=== PATIENT | male | born 1965 | race Caucasian/White ===

== ENCOUNTER → 2017-10-23 06:59 | Outpatient (CLI) | payer OTHER, SELFPAY ==
[2017-10-23 08:48] LABS: Anion Gap 5 (5-15); BUN 12 mg/dL (7-18); BUN/Creat Ratio 17.7 RATIO (10-20); Calcium,Total 8.4 mg/dL (8.5-10.1); Chloride 107 mmol/L (98-107); Cholesterol 138 mg/dL (200); Creatinine, Serum 0.68 mg/dL (0.70-1.30); EST Glomerular Filtration Rate 129 mL/min (>60); Est Glom Filt Rate - Afr Amer 157 mL/min (>60); Glucose 98 mg/dL (74-106); High Density Lipoprotein 44 mg/dL; Potassium 3.9 mmol/L (3.5-5.1); Sodium Level 142 mmol/L (136-145); Triglycerides 47 mg/dL; Very Low Density Lipoprotein 9 mg/dL (5-40)
[2017-10-25 09:15] LABS: Vitamin D,25 Hydroxy 35.7 ng/mL (29.95-100.01)
== END ==
PROVIDERS: Family Provider Family Medicine; PCP Family Medicine; Visit Provider Family Medicine
DX: Z00.00 Encounter for general adult medical examination without abnormal findings (principal); Z12.5 Encounter for screening for malignant neoplasm of prostate
CPT/HCPCS: 36415; 80048; 80061; 82306; 84153; G0103

== ENCOUNTER → 2019-09-15 | Outpatient (CLI) | payer OTHER, SELFPAY ==
[2019-09-15 10:15] LABS: Anion Gap 6 (5-15); BUN 12 mg/dL (7-18); BUN/Creat Ratio 15.4 RATIO (10-20); Calcium,Total 8.6 mg/dL (8.5-10.1); Chloride 106 mmol/L (98-107); Cholesterol 180 mg/dL (200); Creatinine, Serum 0.78 mg/dL (0.70-1.30); EST Glomerular Filtration Rate 110 mL/min (>60); Est Glom Filt Rate - Afr Amer 133 mL/min (>60); Glucose 100 mg/dL (74-106); High Density Lipoprotein 43 mg/dL; PSA,Total - Annual Screen 1.25 ng/mL (0.00-4.00); Potassium 3.8 mmol/L (3.5-5.1); Sodium Level 138 mmol/L (136-145); Triglycerides 65 mg/dL; Very Low Density Lipoprotein 13 mg/dL (5-40); Vitamin D,25 Hydroxy 35.9 ng/mL
== END | disposition home or self-care (01) ==
PROVIDERS: PCP Family Medicine; Referring Provider Family Medicine; Visit Provider Family Medicine
DX: Z00.00 Encounter for general adult medical examination without abnormal findings (principal)
CPT/HCPCS: 36415; 80048; 80061; 82306; 84153; G0103

== ENCOUNTER → 2020-07-17 16:37 | Outpatient (CLI) | payer OTHER, SELFPAY ==
[2020-07-17 18:17] LABS: Anion Gap 6 (5-15); BUN 16 mg/dL (7-18); BUN/Creat Ratio 20.7 RATIO (10-20); Calcium,Total 9.1 mg/dL (8.5-10.1); Chloride 104 mmol/L (98-107); Creatinine, Serum 0.77 mg/dL (0.70-1.30); EST Glomerular Filtration Rate 110 mL/min (>60); Est Glom Filt Rate - Afr Amer 133 mL/min (>60); Glucose 91 mg/dL (74-106); Sodium Level 138 mmol/L (136-145)
== END ==
PROVIDERS: PCP Family Medicine; Referring Provider Family Medicine; Visit Provider Family Medicine
DX: N52.9 Male erectile dysfunction, unspecified (principal)
CPT/HCPCS: 36415; 80048; 84403

== ENCOUNTER → 2022-05-22 | Outpatient (CLI) | payer OTHER, SELFPAY ==
[2022-05-22 12:54] LABS: Anion Gap 3 (5-15); BUN 10 mg/dL (7-18); BUN/Creat Ratio 13.6 RATIO (10-20); Calcium,Total 9.3 mg/dL (8.5-10.1); Chloride 105 mmol/L (98-107); Cholesterol 223 mg/dL (200); Creatinine, Serum 0.73 mg/dL (0.70-1.30); EST Glomerular Filtration Rate 116 mL/min (>60); Est Glom Filt Rate - Afr Amer 141 mL/min (>60); Glucose 98 mg/dL (74-106); High Density Lipoprotein 45 mg/dL; PSA,Total - Annual Screen 1.48 ng/mL (0.00-4.00); Potassium 4.2 mmol/L (3.5-5.1); Sodium Level 138 mmol/L (136-145); Triglycerides 146 mg/dL; Very Low Density Lipoprotein 29 mg/dL (5-40)
== END | disposition home or self-care (01) ==
LOC: MFPLAB 10:36
PROVIDERS: PCP Family Medicine; Referring Provider Family Medicine; Visit Provider Family Medicine
DX: Z00.00 Encounter for general adult medical examination without abnormal findings (principal); Z12.5 Encounter for screening for malignant neoplasm of prostate
CPT/HCPCS: 36415; 80048; 80061; 84153; G0103

== ENCOUNTER → 2023-04-21 | Outpatient (CLI) | payer BC, SELFPAY ==
[2023-04-21 15:19] LABS: Absolute Neutrophil Count 7.2 X10^3/uL (2.0-7.7); Basophil# 0.08 X10^3/uL; Basophil% 0.7 % (0-1); Eosinophil# 0.29 X10^3/uL; Eosinophils% 2.6 % (0-5); Hematocrit 45.5 % (40-54); Hemoglobin 15.2 g/dL (13.0-16.5); Lymphocyte % 20.1 % (19-41); Mean Corp Hgb Conc 33.4 g/dL (32-36); Mean Corpuscular Hgb 29.1 pg (27.0-32.0); Mean Corpuscular Volume 87.2 fL (80-94); Monocyte# 1.16 X10^3/uL; Monocyte% 10.6 % (0-10); NRBC Flagged by Analyzer 0 % (0-5); Neutrophil # 7.18 X10^3/uL (2.7-7.7); Neutrophil % 65.6 % (47-70); Platelet Count 280 K/mm3 (150-450); RBC Distribution Width CV 11.7 % (11.6-14.6); RBC Distribution Width SD 37.6 fl (35.1-43.9); Red Blood Count 5.22 M/mm3 (4.6-6.2)
[2023-04-21 15:35] LABS: Erythrocyte Sedimentation Rate 17 mm/hr (0-20)
[2023-04-21 16:02] LABS: AST(SGOT) 19 U/L (15-37); Alanine Aminotransfer ALT/SGPT 53 U/L (16-61); Albumin, Serum 3.8 g/dL (3.2-5.0); Alkaline Phosphatase 77 U/L (45-117); Anion Gap 9 (5-15); BUN 15 mg/dL (7-18); BUN/Creat Ratio 20.1 RATIO (10-20); CRP < 2.90 mg/L (0.0-3.0); Calcium,Total 8.7 mg/dL (8.5-10.1); Chloride 106 mmol/L (98-107); Creatinine, Serum 0.74 mg/dL (0.70-1.30); EST Glomerular Filtration Rate 114 mL/min (>60); Est Glom Filt Rate - Afr Amer 138 mL/min (>60); Glucose 92 mg/dL (74-106); Protein, Total 7.8 g/dL (6.4-8.2); Sodium Level 139 mmol/L (136-145)
[2023-04-23 14:09] LABS: Endomysial Antibody IgA Negative (Negative); Immunoglobulin A 350 mg/dL (90-386); t-Transglutaminase IgA <2 U/mL (0-3)
== END | disposition home or self-care (01) ==
LOC: MTLAB 14:00
PROVIDERS: PCP Family Medicine; Referring Provider Internal Medicine Gastroenterology; Visit Provider Internal Medicine Gastroenterology
DX: R10.9 Unspecified abdominal pain (principal); R14.0 Abdominal distension (gaseous)
CPT/HCPCS: 36415; 80053; 82784; 83516; 85025; 85652; 86140; 86255

== ENCOUNTER → 2024-03-30 | Outpatient (CLI) | payer BC, SELFPAY ==
--- NOTE | 2024-03-30 16:53 | RAD_ITS ---
INDICATION: SCIATICA OF RIGHT SIDE EXAMINATION/TECHNIQUE: X-RAY - XR Spine Lumbar Min 4 Views COMPARISON: No relevant prior comparison study available FINDINGS: VERTEBRAE: Preserved vertebral body height. No fracture. No spondylolisthesis. Preservation of the normal lumbar lordosis. No significant facet arthropathy. DISCS: Moderate multilevel degenerative spondylosis. INCLUDED ABDOMEN: Included bowel gas pattern is non-obstructive. RAD/L/S Spine Min 4 Views IMPRESSION: Moderate multilevel degenerative spondylosis. Electronically Signed: Heidi Machado MD at 6:56 EDT ,
== END | disposition home or self-care (01) ==
PROVIDERS: PCP Family Medicine; Referring Provider Family Medicine; Visit Provider Family Medicine
DX: M54.31 Sciatica, right side (principal)
CPT/HCPCS: 72110

== ENCOUNTER → 2024-07-21 | Outpatient (CLI) | payer BC, SELFPAY ==
--- NOTE | 2024-07-21 12:02 | RAD_ITS ---
EXAM: XR Orbits Foreign Body CLINICAL INDICATION: TECHNIQUE: Frontal view(s) of the orbits. COMPARISON: No relevant prior studies available. FINDINGS: BONES/JOINTS: Unremarkable. No acute fracture. SINUSES: Unremarkable. No air-fluid levels. SOFT TISSUES: Unremarkable. No radiopaque foreign bodies in the orbits. RAD/Orbits for Foreign Body IMPRESSION: No radiopaque foreign body in either orbit. Reading Location: [facility]
--- NOTE | 2024-07-21 12:04 | MRI_ITS ---
PROCEDURE: Noncontrast MRI of the lumbar spine. REASON FOR EXAM: Back pain radiating to the hips and legs. No recent trauma. No history of prior lumbar spine surgery provided. TECHNIQUE: Contiguous unenhanced axial CT images were obtained through the lumbar spine. Sagittal and coronal reformats were created. CONTRAST: COMPARISON: None. FINDINGS: The study assumes a presence of 5 lumbar type, [id number] vertebral bodies. Minimal grade 1 retrolisthesis of L3 relative to L4. The marrow signal of the lumbar vertebral bodies is mildly heterogeneous, without focal abnormal marrow replacement process or acute fracture. The conus terminates at T12-L1. The included lower spinal cord is unremarkable. There are mild/moderate disc bulges in the lower thoracic spine, greatest at the T11-12, causing [id number]-jg-[id number] central spinal canal narrowing. No definite focal disc herniation in the lower thoracic spine. The included portions of the upper sacrum and SI joints are intact. Included retroperitoneal and paraspinal soft tissues show no specific abnormality. L1-2: A lobulated disc bulge indents the ventral thecal sac and causes mild central spinal canal narrowing. No focal disc herniation. Mild bilateral neural foraminal narrowing and mild degenerative facet changes. L2-3: Minimal disc bulge flattens the ventral thecal sac, without focal disc herniation or significant central spinal canal narrowing. Mild bilateral neural foraminal narrowing. Mild degenerative facet changes. L3-4: Mild disc bulge flattens the ventral thecal sac, without focal disc herniation or significant central spinal canal narrowing. Tquz-hi-rapidyvr bilateral neural foraminal narrowing and mild degenerative facet changes. L4-5: Mild disc bulge flattens the ventral thecal sac, without focal disc herniation or significant central spinal canal narrowing. Moderate bilateral neural foraminal narrowing and moderate degenerative facet changes. L5-S1: Mild diffuse disc bulge, which flattens the ventral thecal sac. No focal disc herniation or significant central spinal canal narrowing. Moderate bilateral neural foraminal narrowing, greatest on the left. Moderate degenerative facet changes. MRI/Spine Lumbar (Routine) IMPRESSION: No acute bony abnormality of the lumbar spine. Moderate multilevel degenerative disc and facet disease in the lumbar spine as described level by level above. A few levels with mild central spinal canal narrowing. No large focal disc herniation or severe central spinal canal stenosis. Multilevel neural foraminal narrowing and degenerative facet changes as describ ed above. There is moderate bilateral neural foraminal narrowing at the L4-5 and L5-S1 levels. Reading Location: [facility]
== END | disposition home or self-care (01) ==
LOC: MRI 11:59
PROVIDERS: PCP Family Medicine; Referring Provider Student in an Organized Health Care Education/Training Program; Visit Provider Student in an Organized Health Care Education/Training Program
DX: Z01.818 Encounter for other preprocedural examination (principal); M54.16 Radiculopathy, lumbar region
CPT/HCPCS: 70030; 72148

== ENCOUNTER 2024-07-26 10:30 | Outpatient (RCR) | payer BC, SELFPAY ==
--- NOTE | 2024-06-26 11:01 | HP.PTEVAL ---
Patient's Visit Information Visit Information Visit Information: JAZZMINE ARNETT II is a 59 year old M referred to Physical Therapy by SHANTANU Judd with a diagnosis of RADICULOPATHY ,LUMBAR ,PRIMARY OSTEOARTHRITIS ,LEFT KNEE. Date of Evaluation: 06/26/24 Physical Therapist: Ermias Zabala, PT, Cert MDT, OCS Visit Plan Frequency: 2x /Week Duration: 4 Weeks Plan: PT INTERVENTIONS JUAN EX'S ,DLS ,POSTURAL EX'S ,LE FLEXABILITY,STRENGTHENING QUADS/HAMS/HIP ,ROM KNEE AND MODALITIES PRN Subjective Subjective: This 59 y/o male presents to physical therapy with lumbar radiculopathy and left knee OA.Patient has lumbar radiculopathy many years and left knee pain/stiffness many years. Patient states possible TKA left. But seen DR for lumbar did x-rays showed DDD .Plan to do MRI for lumbar. Patient has lumbar and hamstrings in bilateral and right calf . Left knee is global. Aggravating bending ,lifting ,sitting. Alleviating factors moving and walking. Patient is unable to squat /kneel ,stairs painful. Patient denies paresthesia/tingling - Coughing/sneezing-Bowel/bladder-Symptoms affects sleeping. Patient has no rior PT and pain management. Patient condition affects QOL and function/job demands. Patient goals why I have pain. SOCIAL:marries VOCATION: sprinkler truck driver Pain Bilateral Back: Pain Intensity (Out of 10): 1 Pain Intensity Range: 10 Bilateral Lower Extremity: Pain Intensity (Out of 10): 3 Pain Intensity Range: 10 Left Knee: Pain Intensity (Out of 10): 1 Pain Intensity Range: 10 Objective Objective: POSTURE: mild forward posture GAIT: ambulates antalgic gait left side with knee in extension with decrease swing phase NEURO: denies paresthesia/tingling ,reflexes L3-4,L4-5,L5-S1 1/3 PALAPTION: unremarkable EDEMA: absent AROM: supine knee flexion 0-120 degrees LUMBAR ROM: flexion mod loss ,extension min/mod loss ,side glides min/mod loss MMT: ( peak force) left quad 23.8 ,hamstrings 24.1 ,hip flexion 24.9 FLEXABILITY: hamstrings mod tight Special Tests L/S Slump test left side: Negative L/S Slump test right side: Negative L/S Left Straight Leg Raise: Negative L/S Right Straight Leg Raise: Negative Lumbar Standing: Flexion - Mechanical Response: No effect Lumbar Standing: Flexion - Symptoms During Testing: Increases Lumbar Standing: Flexion - Symptoms After Testing: No worse Comments:: hamstrings Lumbar Standing: Extension - Mechanical Response: No effect Lumbar Standing: Extension - Symptoms During Testing: Decreases Lumbar Standing: Extension - Symptoms After Testing: No better Lumbar Standing: Right Side Glides - Mechanical Response: No effect Lumbar Standing: Right Side [place] - Symptoms During Testing: No effect Lumbar Standing: Right Side [place] - Symptoms After Testing: No effect Lumbar Standing: Left Side [place] - Mechanical Response: No effect Lumbar Standing: Left Side [place] - Symptoms During Testing: No effect Lumbar Standing: Left Side [place] - Symptoms After Testing: No effect Lumbar Lying: Flexion - Mechanical Response: No effect Lumbar Lying: Flexion - Symptoms During Testing: No effect Lumbar Lying: Flexion - Symptoms After Testing: No effect Lumbar Lying: Extension - Mechanical Response: No effect Lumbar Lying: Extension - Symptoms During Testing: Increases Lumbar Lying: Extension - Symptoms After Testing: No worse Comments:: back , Balance/Special Test Scores Oswestry Low Back Score: 24 Goals Goal 1:: Patient to be I with knee and back Goal Time Frame: 4-6 Weeks Goal 2:: Patient to improve AROM knee flexion by 5-10 degrees to improve stairs Goal Time Frame: 4-6 Weeks Goal 3:: Patient to improve peak force quads/hams/hip by 5-10 # to improve function Goal Time Frame: 4-6 Weeks Goal 4:: Patient to improve lumbar ROM for function of recovery for lifting and put on shes Goal Time Frame: 4-6 Weeks Goal 5:: Patient to improve back oswestry score by 5 points to improve QOL Goal Time Frame: 4-6 Weeks Goal 6:: Patient to demonstrate 50% improvement with less pain and improved function Goal Time Frame: 4-6 Weeks Rehabilitation Potential Physical Therapy Diagnosis: This patient has lumbar radiculopathy with pain with positioning and motion testing better walking worse sitting bending in hamstrings along with left knee DJD with pain ,weakness and decrease ROM thus benefit from skilled PT Rehabilitation Potential: Good Anticipated Interventions Patient/Client Instruction: Educate patient on: Condition and Plan of Care For the Purpose of:: To decrease pain, To increase ROM, To improve muscle performance and motor function, To improve ability to perform ADL's, To increase tolerance to activity/condition/position, To improve ability of physical actions for home/community/work/leisure, To improve health of tissue, To decrease soft tissue restriction, To increase flexibility/ROM, To reduce risk of recurrence, To prevent re-injury and To improve tolerance to ADL's Therapeutic Exercise to Include: Strength training, Body mechanics, Postural training, Flexibilty training, Passive ROM, Active ROM, Dynamic Lumbar Stabilization and Juan Exercises Comment: LEFT QUADS/HAMS/HIP For the Purpose of:: To decrease pain, To increase ROM, To improve muscle performance and motor function, To increase tolerance to activity/condition/position, To improve ability of physical actions for home/community/work/leisure, To improve gait and locomotor functions, To improve health of tissue, To decrease soft tissue restriction, To increase flexibility/ROM, To improve endurance and To improve tolerance to ADL's TENS: Yes IF ES: Yes Cryotherapy (ice pack, ice massage): Yes Thermo therapy (hot pack): Yes Ultrasound (thermal/non thermal): Yes For the Purpose of:: To decrease pain, To increase ROM, To improve muscle performance and motor function, To improve ability to perform ADL's, To improve health of tissue, To decrease soft tissue restriction and To improve tolerance to ADL's Text: Thank you for the opportunity to evaluate your patient. For Medicare and Medicare HMO plans, please review the plan of care and approve it. It will need to be FAXED BACK to us at [phone] for Medicare purposes. For Medicare only, by signing this I certify the plan of care. Please let me know if there are questions or concerns regarding this plan of care. Physician Signature: Date:
--- NOTE | 2024-07-26 11:49 | HP.PTDCSUM ---
Discharge Summary D/C summary: It has been my pleasure to treat JAZZMINE ARNETT II referred by SHANTANU Judd, with the diagnosis of RADICULOPATHY ,LUMBAR ,PRIMARY OSTEOARTHRITIS ,LEFT KNEE for a total of 7 visit(s). Discharge Date: 07/26/24 Please see the following information for a summary of their discharge status. Subjective Subjective: Discussed with patient MRI But patient thinks knee is worse and I shoulder see DR Santana then ortho for knee Pain Bilateral Back: Pain Intensity (Out of 10): 7 Bilateral Lower Extremity: Pain Intensity (Out of 10): 2 Left Knee: Pain Intensity (Out of 10): 2 Overall Improvement % Improvement: 10 Objective Objective/Function: -REVIEWED MRI- -RTD POSTURE: mild forward posture GAIT: ambulates antalgic gait left side with knee in extension with decrease swing phase NEURO: denies paresthesia/tingling ,reflexes L3-4,L4-5,L5-S1 1/3 PALAPTION: unremarkable EDEMA: absent AROM: supine knee flexion 0-120 degrees LUMBAR ROM: flexion mod loss ,extension min/mod loss ,side glides min/mod loss MMT: ( peak force) left quad 24.8 ,hamstrings 24.7 ,hip flexion 25.91 FLEXABILITY: hamstrings mod tighT Goals Goal 1:: Patient to be I with knee and back Goal Progress: Progressing Goal 2:: Patient to improve AROM knee flexion by 5-10 degrees to improve stairs Goal Progress: Not Progressing Goal 3:: Patient to improve peak force quads/hams/hip by 5-10 # to improve function Goal Progress: Not Progressing Goal 4:: Patient to improve lumbar ROM for function of recovery for lifting and put on shes Goal Progress: Not Progressing Goal 5:: Patient to improve back oswestry score by 5 points to improve QOL Goal Progress: Not Progressing Goal 6:: Patient to demonstrate 50% improvement with less pain and improved function Goal Progress: Progressing Plan Plan: D/C D/C Information Discharge Comments: RTD d/c sentence: If there are questions or concerns regarding this patient's physical therapy, please feel free to call me at [phone]. Thank you for the referral of this patient. Sincerely, Ermias Zabala, PT, Cert MDT, OCS Balance/Gait/Functional tests Balance/Special Test Scores Oswestry Low Back Score: 24 Improvement % Improvement: 10
== END 2024-07-26 19:00 | disposition home or self-care (01) ==
LOC: PT 10:30
PROVIDERS: PCP Family Medicine; Referring Provider Student in an Organized Health Care Education/Training Program; Visit Provider Student in an Organized Health Care Education/Training Program
DX: M54.16 Radiculopathy, lumbar region (principal); M17.12 Unilateral primary osteoarthritis, left knee
CPT/HCPCS: 97014; 97110; 97161; 97530; G0283

== ENCOUNTER → 2024-09-28 | Outpatient (CLI) | payer BC, SELFPAY ==
[2024-09-28 16:54] LABS: PSA,Total - Annual Screen 3.08 ng/mL (0.02-4.00)
== END | disposition home or self-care (01) ==
LOC: MFPLAB 10:10
PROVIDERS: PCP Family Medicine; Referring Provider Family Medicine; Visit Provider Family Medicine
DX: N40.0 Benign prostatic hyperplasia without lower urinary tract symptoms (principal)
CPT/HCPCS: 36415; 84153; G0103

== ENCOUNTER → 2024-10-20 | Outpatient (CLI) | payer BC, SELFPAY ==
[2024-10-20 17:48] LABS: Hematocrit 32.3 % (40-54); Hemoglobin 10.9 g/dL (13.0-16.5); Mean Corp Hgb Conc 33.7 g/dL (32-36); Mean Corpuscular Hgb 30.3 pg (27.0-32.0); Mean Corpuscular Volume 89.7 fL (80-94); Platelet Count 232 K/mm3 (150-450); RBC Distribution Width CV 12.2 % (11.6-14.6); RBC Distribution Width SD 39.9 fl (35.1-43.9); White Blood Count 16.1 K/mm3 (4.4-11.0)
== END | disposition home or self-care (01) ==
LOC: MTLAB 13:05
PROVIDERS: PCP Family Medicine; Referring Provider Physician Assistant Surgical; Visit Provider Physician Assistant Surgical
DX: Z96.651 Presence of right artificial knee joint (principal); D72.829 Elevated white blood cell count, unspecified
CPT/HCPCS: 36415; 85027

== ENCOUNTER → 2025-03-29 | Outpatient (CLI) | payer BC, SELFPAY ==
--- NOTE | 2025-03-29 09:40 | RAD_ITS ---
PROCEDURE: HIPS B/L MIN 2 VIEWS W/ PELVIS 03/29/2025 REASON FOR EXAM: BILATERAL HIP PAIN TECHNIQUE: Procedure Code: [id number] Modality: DX Procedure: HIPS B/L 5 VIEWS W/ PELVIS Laterality: Bilateral COMPARISON: None. RAD/Hips B/L min 2 views w/ Pelvis IMPRESSION: Degenerative changes are seen of the visualized lower lumbar spine. Minimal sacroiliac joint degenerative changes are noted. Remote posttraumatic changes seen at the lateral right iliac wing. Inferior pubic rami enthesophytes are seen, fmujj-tdlprgv-fveq-left, mild degen erative changes seen of the bilateral hip joints, tkgrx-kyhrxqh-drnn-left. No significant joint narrowing is noted. No evidence of femoral head osteonecrosis. No acute fracture or dislocation is evident. Reading Location: [id number]
[2025-03-29 12:03] LABS: Hematocrit 40.0 % (40-54); Hemoglobin 13.3 g/dL (13.0-16.5); Immature Granulocytes Count 0.060 X10^3/uL (0.0-0.0); Mean Corp Hgb Conc 33.3 g/dL (32-36); Mean Corpuscular Volume 83.9 fL (80-94); Mean Platelet Vol. 9.6 fl (6.2-12.0); NRBC Flagged by Analyzer 0 % (0-5); Platelet Count 386 K/mm3 (150-450); RBC Distribution Width CV 12.5 % (11.6-14.6); RBC Distribution Width SD 38.5 fl (35.1-43.9); Red Blood Count 4.77 M/mm3 (4.6-6.2); White Blood Count 10.3 K/mm3 (4.4-11.0)
[2025-03-30 14:10] LABS: ANTINUCLEAR ANTIBODIES DIRECT Negative (Negative); CRP, High Sensitivity 32.62 mg/L (0.00-3.00)
== END | disposition home or self-care (01) ==
LOC: MTLAB 09:38
PROVIDERS: PCP Family Medicine; Referring Provider Family Medicine; Visit Provider Family Medicine
DX: M25.551 Pain in right hip (principal); M25.552 Pain in left hip
CPT/HCPCS: 36415; 73521; 85025; 85652; 86038; 86141